=== PATIENT | female | born 1965 | race Caucasian/White ===

== ENCOUNTER 2016-12-08 11:34 | Emergency (ER) | payer BC, SELFPAY ==
[2016-12-08] MEDS ORDERED: Bupivacaine 0.5% 10 ML VIAL ONE (12:00)
--- NOTE | 2016-12-08 12:19 | RAD ---
RIGHT SHOULDER 2 VIEWS: Date: 12/08/16 HISTORY: Fall. Right shoulder injury. FINDINGS: Humeral head lies immediately inferior to the coracoid process and glenoid. Acromioclavicular alignm ent is maintained. IMPRESSION: Right shoulder anterior dislocation. POS: [facility]
[2016-12-08] MEDS ORDERED: Diprivan 20 ML ONE (13:18)
--- NOTE | 2016-12-08 14:15 | RAD ---
RIGHT SHOULDER: Date: 12/08/16 HISTORY: Patient with dislocated right shoulder. FINDINGS: AP and scapular Y views of right shoulder obtained. Images demonstrate status post reduction of the anterior right shoulder dislocation. No evidence of acute bony lesions seen. Obviously, due to the anterior shoulder dislocation, Hill-Sachs deformity c annot be excluded. IMPRESSION: Status post reduction right shoulder. POS: [facility]
== END 2016-12-08 13:59 | disposition home or self-care (01) ==
LOC: ERS 11:34
DX: S43.004A Unspecified dislocation of right shoulder joint, initial encounter (principal); E03.9 Hypothyroidism, unspecified; I10 Essential (primary) hypertension; W19.XXXA Unspecified fall, initial encounter
CPT/HCPCS: 23650; 96372; 99152; J2270; J2704; J3490

== ENCOUNTER 2017-08-11 13:05 | Emergency (ER) | payer BC ==
[2017-08-11 13:30] LABS: #Eosinphils 0.1 thou/uL (0.0-0.7); #Lymphocytes 1.6 thou/uL (1.20-3.40); #Monocytes 0.7 thou/uL (0.11-0.59); #Neutrophils 9.4 thou/uL (1.40-6.50); %Basophils 0.4 % (0.0-1.0); %Eosinophils 0.8 % (0.0-10.0); %Lymphocytes 13.4 % (21.0-51.0); %Monocytes 5.8 % (0.0-10.0); %Neutrophils 79.7 % (42.0-75.0); Hemoglobin 16.3 g/dL (12.0-16.0); Mean Corpuscular HGB CONC 34.9 g/dL (32.0-36.0); Mean Corpuscular Hemoglobin 29.8 pg (27.0-31.0); Mean Corpuscular Volume 85.5 fl (81.0-99.0); Mean Platelet Volume 5.9 fL (7.4-10.4); Platelet Count 319 thou/uL (130-400); Red Blood Cell (RBC) Count 5.47 mill/uL (4.20-5.40); White Blood Cell (WBC) Count 11.8 thou/uL (4.8-10.8)
--- NOTE | 2017-08-11 13:36 | RAD ---
AP VIEW CHEST: HISTORY: Chest pain. DATE: 08/11/17. FINDINGS: AP view chest demonstrates the lungs to be well aerated. No evidence of active intrathoracic disease is seen. No evidence of effusions, pneumonia, or pneumothorax is seen. IMPRESSION: Unremarkable AP view chest. POS: [facility]
[2017-08-11 13:51] LABS: ALT (SGPT) 17 U/L (8-55); AST (SGOT) 15 U/L (5-34); Alkaline Phosphatase 49 U/L (40-150); Anion Gap 13 mmol/L (10-20); BUN (Urea Nitrogen) 13 mg/dL (7.0-18.7); Bilirubin, Total 0.5 mg/dL (0.2-1.2); CK (CPK) 39 U/L (29-168); Calc. Creatinine Clearance 0 mL/min (70-130); Carbon Dioxide 20 mmol/L (22-29); Chloride 107 mmol/L (98-107); Estimated GFR-MDRD 76; Globulin 2.2 g/dL (2.4-3.5); Glucose 133 mg/dL (70-105); Potassium 3.8 mmol/L (3.5-5.1); Protein, Total 6.2 g/dL (6.0-8.3); Sodium 136 mmol/L (136-145)
[2017-08-11 13:57] LABS: CKMB 0.6 ng/mL (0-6.6); Troponin I Less than 0.010 ng/mL (< 0.028)
[2017-08-11] MEDS ORDERED: Acetaminophen 500 MG TAB ONE (14:10)
[2017-08-11] MEDS ORDERED: Mag-Al 1200 mg/1200 mg/30 ML UDCUP ONE (14:11)
[2017-08-11] MEDS ORDERED: Lidocaine Viscous Sol 2% 15 ml UD Cup ONE (14:11)
[2017-08-11] MEDS ORDERED: Ondansetron ODT 8 MG TAB ONE (15:04)
[2017-08-11] MEDS ORDERED: Metoclopramide HCl 10 MG/2 ML VIAL ONE (15:05)
[2017-08-11] MEDS ORDERED: diphenhydrAMINE 50 MG/ML VIAL ONE (15:05)
[2017-08-11] MEDS ORDERED: Ketorolac Tromethamine 30 MG/ML VIAL ONE (15:05)
== END 2017-08-11 16:23 | disposition home or self-care (01) ==
LOC: ERS 13:05
DX: R07.89 Other chest pain (principal); F41.9 Anxiety disorder, unspecified; I10 Essential (primary) hypertension; K21.9 Gastro-esophageal reflux disease without esophagitis; E03.9 Hypothyroidism, unspecified
CPT/HCPCS: 36415; 71045; 80053; 82553; 84484; 85025; 93005; 96361; 96374; 96375; J1200; J1885; J2765

== ENCOUNTER 2017-09-03 08:11 | Outpatient (CLI) | payer BC | END 2017-09-03 08:12 | disposition home or self-care (01) | LOC: BICMAMMO 08:11 | PROVIDERS: ATTEND Internal Medicine | DX: Z12.31 Encounter for screening mammogram for malignant neoplasm of breast (principal) | CPT/HCPCS: 77063; 77067 ==

== ENCOUNTER 2017-11-01 20:30 | Outpatient (CLI) | payer BC | END 2017-11-01 20:31 | disposition home or self-care (01) | LOC: SLEEPLAB 20:30 | PROVIDERS: ATTEND Internal Medicine | DX: G47.33 Obstructive sleep apnea (adult) (pediatric) (principal); G25.81 Restless legs syndrome; R53.83 Other fatigue; R51 Headache; R35.1 Nocturia; R06.83 Snoring; G47.00 Insomnia, unspecified; R09.89 Other specified symptoms and signs involving the circulatory and respiratory systems; F32.9 Major depressive disorder, single episode, unspecified; G47.10 Hypersomnia, unspecified; Z68.32 Body mass index [BMI] 32.0-32.9, adult | CPT/HCPCS: 95811 ==

== ENCOUNTER 2018-05-03 10:36 | Outpatient (CLI) | payer BC ==
--- NOTE | 2018-05-03 12:56 | RAD ---
LEFT HIP 2 VIEWS: HISTORY: Bilateral hip pain, left greater than right. Multiple prior falls. FINDINGS/IMPRESSION: Mild degenerative changes without acute fracture or dislocation. POS: [facility]
--- NOTE | 2018-05-03 12:57 | RAD ---
RIGHT HIP 2 VIEWS: HISTORY: Bilateral hip pain, right greater than left, following multiple falls. FINDINGS/IMPRESSION: Mild degenerative changes right hip without fracture or dislocation. POS: [facility]
== END 2018-05-03 10:37 | disposition home or self-care (01) ==
LOC: BICRAD 10:36
PROVIDERS: ATTEND Internal Medicine
DX: M25.552 Pain in left hip (principal); M25.551 Pain in right hip; M16.0 Bilateral primary osteoarthritis of hip; Z91.81 History of falling

== ENCOUNTER 2019-01-06 15:01 | Outpatient (CLI) | payer BC ==
--- NOTE | 2019-01-06 16:24 | MRI ---
EXAM: MRI Thoracic Spine WO Con PROVIDED CLINICAL HISTORY: Thoracic spondylosis without myelopathy or radiculopathy. Patient plans back pain after falling in 2018. COMPARISON: None FINDINGS: Few scattered foci of increased T1 and T2-weighted signal intensity are seen in the lower thoracic ve rtebral bodies likely attributable small hemangiomas versus focal areas of fat. There is otherwise normal signal intensity demonstrated throughout the bone marrow. The spinal cord demonstrates normal contour and signal intensity. Conus medullaris terminates at the level of the L1 vertebral body. Minimal disc osteophyte complex is seen at the T11-12 level. There is no significant central canal or neural foraminal narrowing. Central spinal canal and neural foramina are patent throughout the thoracic spine. Paravertebral soft tissues have a normal appearance. IMPRESSION: Central spinal canal and neural foramina are patent throughout the thoracic spine.
== END 2019-01-06 15:02 | disposition home or self-care (01) ==
LOC: BICMRI 15:01
PROVIDERS: ATTEND Family Medicine
DX: M47.814 Spondylosis without myelopathy or radiculopathy, thoracic region (principal); M48.04 Spinal stenosis, thoracic region
CPT/HCPCS: 72146

== ENCOUNTER 2019-09-15 08:42 | Outpatient (CLI) | payer BC ==
--- NOTE | 2019-09-15 09:26 | MMO ---
Left Breast MAMMO Unilat Diag DDI LT+CONNIE. CLINICAL HISTORY: Patient is 54 years old and is seen for additional evaluation requested at current screening. The patient has the following family history of breast cancer: mother. The patient has no personal history of cancer. VIEWS: The views performed were: left mediolateral oblique spot compression with tomosynthesis and left mediolateral with tomosynthesis. FILMS COMPARED: The present examination has been compared to prior imaging studies performed at [facility] on 09/04/2019, and at [facility] on 08/30/2016, 09/03/2017 and 09/15/2019. This study has been interpreted with the assistance of computer-aided detection. MAMMOGRAM FINDINGS: The breast is heterogeneously dense, which could obscure a lesion on mammography. There is a nodular density in the left upper outer breast. Please see US report. IMPRESSION: FINDING IN THE LEFT BREAST IS PROBABLY BENIGN. FOLLOW-UP IN 6 MONTHS IS RECOMMENDED. THE RESULTS OF THIS EXAM WERE SENT TO THE PATIENT. ACR BI-RADS Category 3 - Probably benign finding - short interval follow-up suggested. [facility] will notify the patient of the need for additional imaging services. MAMMOGRAPHY NOTE: 1. A negative mammogram report should not delay a biopsy if a dominant of clinically suspicious mass is present. 2. Approximately 10% to 15% of breast cancers are not detected by mammography. 3. Adenosis and dense breasts may obscure an underlying neoplasm. Reported by: NORM SMITH MD Electonically Signed: [id number]
--- NOTE | 2019-09-15 10:28 | ULT ---
LEFT BREAST ULTRASOUND: Date: 09/15/2019 HISTORY: Abnormal mammogram. FINDINGS: Correlation is made with mammograms of 09/15/2019 and 09/04/2019. Sonographic evaluation of the left upper outer breast demonstrates multiple cystic masses, some simpl e and the others complex. The largest of these measures 1.0 cm at the 3 o'clock position, 2.0 cm from the nipple. IMPRESSION: BI-RADS Category 3 - Probably benign findings. A six month follow-up left breast ultrasound is recomm ended. The facility will notify patient of need for additional imaging services.
== END 2019-09-15 08:43 | disposition home or self-care (01) ==
LOC: BICMAMMO 08:42
PROVIDERS: ATTEND Obstetrics & Gynecology
DX: R92.2 Inconclusive mammogram (principal)
CPT/HCPCS: G0279

== ENCOUNTER 2020-02-13 08:08 | Outpatient (CLI) | payer BC | END 2020-02-13 08:09 | disposition home or self-care (01) | LOC: CTENTCT 08:08 | PROVIDERS: ATTEND Specialist | DX: J32.9 Chronic sinusitis, unspecified (principal) | CPT/HCPCS: 70486 ==

== ENCOUNTER 2020-03-17 08:12 | Outpatient (CLI) | payer BC ==
--- NOTE | 2020-03-17 09:15 | ULT ---
LEFT BREAST ULTRASOUND: HISTORY: Six-month followup. FINDINGS: Comparison is made with the exam of 09/15/2019. Sonographic evaluation of the left upper outer breast demonstrates multiple cystic masses, some simpl e and others complex without significant interval change from the previous exam. The largest of thes e continues to measure about 1 cm at the 3 o'clock position. These cystic masses could represent dilated ducts (some with internal debris) since dilated ducts are also seen in the retroareolar aspect of the left breast. IMPRESSION: BIRADS category 3 - probably benign findings. A 6-month followup left breast ultrasound is recommend ed. An MRI would also be helpful. POS: [facility]
== END 2020-03-17 08:13 | disposition home or self-care (01) ==
LOC: BICMAMMO 08:12
PROVIDERS: ATTEND Family Medicine
DX: R92.8 Other abnormal and inconclusive findings on diagnostic imaging of breast (principal)

== ENCOUNTER 2020-09-14 09:19 | Outpatient (CLI) | payer BC | END 2020-09-14 09:20 | disposition home or self-care (01) | LOC: BICMAMMO 09:19 | PROVIDERS: ATTEND Obstetrics & Gynecology | DX: R92.8 Other abnormal and inconclusive findings on diagnostic imaging of breast (principal) | CPT/HCPCS: 77066; G0279 ==

== ENCOUNTER 2020-12-13 08:30 | Outpatient (CLI) | payer BC ==
[2020-12-13 19:05] LABS: SARS-CoV-2 PCR by NAA Not Detected (NotDetected)
== END 2020-12-13 08:31 | disposition home or self-care (01) ==
LOC: LABBT 08:30
PROVIDERS: ATTEND Specialist
DX: Z01.818 Encounter for other preprocedural examination (principal); J34.2 Deviated nasal septum; J34.3 Hypertrophy of nasal turbinates; J32.0 Chronic maxillary sinusitis; J32.2 Chronic ethmoidal sinusitis; J32.3 Chronic sphenoidal sinusitis; J34.89 Other specified disorders of nose and nasal sinuses; R09.81 Nasal congestion; Z20.822 Contact with and (suspected) exposure to COVID-19
CPT/HCPCS: 85014; 93005; 93010; U0003; U0005

== ENCOUNTER 2020-12-16 08:21 | Day surgery (SDC) | payer BC ==
[2020-12-15 12:05] VITALS: BMI 214.3
[2020-12-16] MEDS ORDERED: AFRIN NASAL MIST 15 ML BOT ONE ×2 (09:41→10:44)
[2020-12-16] MEDS ORDERED: Midazolam HCl 2 mg/2 ml Vial ONE (10:40)
[2020-12-16] MEDS ORDERED: Fentanyl 100 MCG/2 ML VIAL ONE ×2 (10:40→12:45)
[2020-12-16] MEDS ORDERED: Bacitracin Zinc Ointment 30 gm TUBE ONE (10:44)
[2020-12-16] MEDS ORDERED: Lidocaine 1% w/Epinephrine 1:100K 20 ML VIAL ONE (10:44)
[2020-12-16] MEDS ORDERED: EPINEPHrine 1 MG/ML AMP ONE (10:45)
[2020-12-16] MEDS ORDERED: Ondansetron PF 4 MG/2 ML Vial ONE (11:07)
[2020-12-16] MEDS ORDERED: Dexamethasone 20 MG/5 ML VIAL ONE (11:07)
[2020-12-16] MEDS ORDERED: PHENYLEPHRINE-NS 100 MCG/ML 10 ML SYRINGE ONE (11:07)
[2020-12-16] MEDS ORDERED: PROPOFOL 200 MG/20 ML VIAL ONE (11:07)
[2020-12-16] MEDS ORDERED: Lidocaine 1% PF 5 ML VIAL ONE (11:07)
[2020-12-16] MEDS ORDERED: Hydrocodone-Acetamin 15 ML UDCUP ONE (13:59)
== END 2020-12-16 14:36 | disposition home or self-care (01) ==
LOC: SDC 08:21
PROVIDERS: ATTEND Specialist
PROC: 09SM4ZZ Reposition Nasal Septum, Percutaneous Endoscopic Approach (ICD-10-PCS; principal; 2020-12-16)
PROC: 099W8ZZ Drainage of Right Sphenoid Sinus, Via Natural or Artificial Opening Endoscopic (ICD-10-PCS; principal; 2020-12-16)
PROC: 8E09XBZ Computer Assisted Procedure of Head and Neck Region (ICD-10-PCS; principal; 2020-12-16)
PROC: 099R8ZZ Drainage of Left Maxillary Sinus, Via Natural or Artificial Opening Endoscopic (ICD-10-PCS; principal; 2020-12-16)
PROC: 099X8ZZ Drainage of Left Sphenoid Sinus, Via Natural or Artificial Opening Endoscopic (ICD-10-PCS; principal; 2020-12-16)
PROC: 09BV8ZZ Excision of Left Ethmoid Sinus, Via Natural or Artificial Opening Endoscopic (ICD-10-PCS; principal; 2020-12-16)
PROC: 099Q8ZZ Drainage of Right Maxillary Sinus, Via Natural or Artificial Opening Endoscopic (ICD-10-PCS; principal; 2020-12-16)
PROC: 09BT8ZZ Excision of Left Frontal Sinus, Via Natural or Artificial Opening Endoscopic (ICD-10-PCS; principal; 2020-12-16)
PROC: 09BS8ZZ Excision of Right Frontal Sinus, Via Natural or Artificial Opening Endoscopic (ICD-10-PCS; principal; 2020-12-16)
PROC: 09BL8ZZ Excision of Nasal Turbinate, Via Natural or Artificial Opening Endoscopic (ICD-10-PCS; principal; 2020-12-16)
PROC: 09BU8ZZ Excision of Right Ethmoid Sinus, Via Natural or Artificial Opening Endoscopic (ICD-10-PCS; principal; 2020-12-16)
DX: J32.8 Other chronic sinusitis (principal); J34.2 Deviated nasal septum; J34.3 Hypertrophy of nasal turbinates; I10 Essential (primary) hypertension; E03.9 Hypothyroidism, unspecified; K21.9 Gastro-esophageal reflux disease without esophagitis; Z79.899 Other long term (current) drug therapy; Z88.0 Allergy status to penicillin; Z88.2 Allergy status to sulfonamides
CPT/HCPCS: J0171; J1100; J2250; J2405; J2704; J3010